=== PATIENT | male | born 1950 | race Caucasian/White ===

== ENCOUNTER → 2020-11-19 | Outpatient (CLI) | payer OTHER | LOC: CT 07:57 | DX: I65.23 Occlusion and stenosis of bilateral carotid arteries (principal) | CPT/HCPCS: 70496; 70498; Q9967 ==

== ENCOUNTER → 2021-02-22 | Outpatient (CLI) | payer MEDICARE | LOC: KOH-I 12:59 | DX: I65.23 Occlusion and stenosis of bilateral carotid arteries (principal) | CPT/HCPCS: 93880 ==

== ENCOUNTER → 2021-04-11 | Outpatient (CLI) | payer MEDICARE | LOC: SLEEP 15:10 | DX: G47.33 Obstructive sleep apnea (adult) (pediatric) (principal) | CPT/HCPCS: 95810 ==